=== PATIENT | male | born 1995 | race African-American/Black ===

== ENCOUNTER 2020-01-30 11:37 | Emergency (ER) | payer OTHER ==
[~2020-01-30] VITALS: Ht 182.9 cm; Wt 79.4 kg
[2020-01-30] MEDS ORDERED: NOHOMEMEDICATIONS (11:44)
[2020-01-30] MEDS ORDERED: NAPROSYN500 MG PO (12:47)
[2020-01-30] MEDS ORDERED: VOLTAREN GEL 1100 G2 TOP (12:47)
[2020-01-30 12:52] VITALS: BP 107/66
== END 2020-01-30 12:52 | disposition home or self-care (01) ==
LOC: ER 11:37
DX: S89.91XA Unspecified injury of right lower leg, initial encounter (principal); X50.1XXA Overexertion from prolonged static or awkward postures, initial encounter; Y93.89 Activity, other specified; Y92.89 Other specified places as the place of occurrence of the external cause; Y99.8 Other external cause status